=== PATIENT | female | born 1950 | race Caucasian/White ===

== ENCOUNTER 2016-09-18 22:07 | Inpatient (IN) | payer MEDICARE, MEDICAID ==
[~2016-09-18] VITALS: Ht 162.6 cm; Wt 88.5 kg
--- NOTE | 2016-09-18 22:15 | NUR ---
PT BIB PRIVATE AMBULANCE FROM [facility] FOR MED CLEARANCE AND ADMISSION TO [facility].PT ON 5150 FOR DANGER TO SELF.PT AWAKE,ALERT AND COOPERATIVE.ANSWERING QUESTIONS WITHOUT DIFFICULTY. PT IS ALERT, ORIENTED X 4, NO RESP DISTRESS NOTED OR REPORTED UPON ASSESSMENT... MD AT BEDSIDE...
[2016-09-18] MEDS ORDERED: LORAZEPAM 0.5 MG TABLET PO ONE (22:30)
[2016-09-18] MEDS ORDERED: TRIH2TAB3 PO (22:33)
[2016-09-18] MEDS ORDERED: CAPT25TA3 PO (22:33)
[2016-09-18] MEDS ORDERED: QUET50TA PO (22:33)
[2016-09-18] MEDS ORDERED: DONE5TAB34 PO (22:33)
[2016-09-18] MEDS ORDERED: ONDA4TAB8 PO (22:33)
[2016-09-18] MEDS ORDERED: DEXT1TAB13 PO (22:33)
[2016-09-18] MEDS ORDERED: SENN8.6T6 PO (22:33)
[2016-09-18] MEDS ORDERED: HYDR-552 PO (22:33)
[2016-09-18] MEDS ORDERED: INSU100I14 SQ (22:33)
[2016-09-18] MEDS ORDERED: VALS1TAB2 PO (22:33)
[2016-09-18] MEDS ORDERED: LORA0.5T PO (22:33)
[2016-09-18] MEDS ORDERED: ACET650T10 PO (22:33)
[2016-09-18] MEDS ORDERED: DEXT50DI8 IV (22:33)
[2016-09-18] MEDS ORDERED: SIMV10TA6 PO (22:33)
[2016-09-18] MEDS ORDERED: TRAZ-144 PO (22:33)
[2016-09-18] MEDS ORDERED: GLUC1VIA4 IJ (22:33)
[2016-09-18] MEDS ORDERED: DOCU-170 PO (22:33)
[2016-09-18] MEDS ORDERED: CLOM50CA2 PO (22:33)
[2016-09-18] MEDS ORDERED: [UNRECOGNIZED DRUG - CODE] IV (22:33)
[2016-09-18] MEDS ORDERED: HYDR-4076 PO (22:33)
[2016-09-18 22:45] LABS: BASOPHILS # (AUTO) 0.1 K/uL (0.0-0.2); BASOPHILS % (AUTO) 0.8 % (0.0-2.0); EOSINOPHILS # (AUTO) 0.1 K/uL (0.0-0.7); HEMATOCRIT 42.5 % (37.0-47.0); HEMOGLOBIN 13.9 g/dL (12.0-16.0); LYMPHOCYTES # (AUTO) 2.4 K/uL (0.8-4.8); LYMPHOCYTES % (AUTO) 26.7 % (20.5-51.5); MEAN CORPUSCULAR HEMOGLOBIN 27.4 uug (27.0-31.0); MEAN CORPUSCULAR HGB CONC 33 g/dL (32.0-37.0); MEAN CORPUSCULAR VOLUME 83.9 fL (81.0-99.0); MONOCYTES # (AUTO) 0.7 K/uL (0.1-1.30); MONOCYTES % (AUTO) 7.7 % (0.0-11.0); NEUTROPHILS # (AUTO) 5.7 K/uL (1.8-8.9); NEUTROPHILS % (AUTO) 63.8 % (38.5-71.5); PLATELET COUNT (AUTO) 238 K/uL (150-450); RED BLOOD CELL COUNT(AUTO) 5.07 MIL/uL (4.20-5.40)
[2016-09-18] MEDS ORDERED: LORAZEPAM 0.5 MG TABLET ONE (22:50)
[2016-09-18 22:52] LABS: CALCIUM 9.5 mg/dL (8.5-10.1); CARBON DIOXIDE 28 mmol/L (21-32); CHLORIDE 98 mmol/L (98-107); CREATININE 1.1 mg/dL (0.6-1.3); GFR 50 mL/min (>60); GLUCOSE 105 mg/dL (74-106); POTASSIUM 3.5 mmol/L (3.5-5.1); SODIUM SERUM 138 mmol/L (136-145); UREA NITROGEN, BLOOD 15 mg/dL (7-18)
[2016-09-18 22:54] LABS: ETHANOL < 3 MG/DL (0-0)
[2016-09-18 22:57] LABS: ALANINE AMINOTRANSFERASE 26 U/L (14-59); ALBUMIN 4.1 g/dL (3.4-5.0); ALKALINE PHOSPHATASE 87 U/L (50-136); ASPARTATE AMINOTRANSFERASE 27 U/L (15-37); BILIRUBIN,DIRECT 0.1 mg/dL (0.0-0.2); BILIRUBIN,TOTAL 0.5 mg/dL (0.2-1.0); TOTAL PROTEIN, SERUM 7.8 g/dL (6.4-8.2)
[2016-09-18 22:58] LABS: ACETAMINOPHEN < 2.0 ug/mL (10-30)
[2016-09-18 23:16] LABS: *BILIRUBIN,URIN NEGATIVE (NEGATIVE); *BLOOD, URINE Trace-lysed (NEGATIVE); *CLARITY,URINE HAZY (CLEAR); *COLOR,URINE YELLOW (YELLOW); *KETONES,URINE NEGATIVE (NEGATIVE); *PROTEIN,URINE NEGATIVE (NEGATIVE); *UROBILINOGEN,URINE 0.2 E.U./dl (NORMAL); LEUKOCYTE ESTERASE ,URINE 1+ (NEGATIVE); NITRITE, URINE NEGATIVE (NEGATIVE); UGLUCOSE NEGATIVE (NEGATIVE)
[2016-09-18 23:41] LABS: *AMPHETAMINE, URINE NEGATIVE (NEGATIVE); *BARBITURATE, URINE NEGATIVE (NEGATIVE); *CANNABINOID, URINE NEGATIVE (NEGATIVE); *COCCAINE, URINE NEGATIVE (NEGATIVE); *OPIATE, URINE NEGATIVE (NEGATIVE); *PHENCYCLIDINE SCREEN,URINE NEGATIVE (NEGATIVE)
[2016-09-18] MEDS ORDERED: CIPROFLOXACIN HCL 250 MG TABLET PO ONE (23:45)
[2016-09-18 23:48] LABS: BACTERIA,URINE FEW /HPF (NONE SEEN); SQUAMOUS EPITHELIAL CELL,UR MODERATE /HPF (NONE SEEN)
--- NOTE | 2016-09-18 23:49 | NUR ---
Pt. admitted to [facility]hu , under care of Dr. RUTHERFORD, Belongs List completed, Pt alert, oriented x 4, no resp distress noted or reported upon transfer assessment... pt transferred via gurney...
[2016-09-19] MEDS ORDERED: MAGNESIUM HYDROXIDE 30 ML LIQUID UDC PO PRN (00:15)
[2016-09-19] MEDS ORDERED: MAG HYDROX/AL HYDROX/SIMETH 30 ML LIQUID UDC PO PRN (00:15)
[2016-09-19] MEDS ORDERED: LORAZEPAM 1 MG TABLET PO PRN (00:15)
--- NOTE | 2016-09-19 00:30 | NUR ---
GPS ADMISSION NOTE: A 66 YEAR OLD FEMALE WAS ADMITTED @ 00:05, ON 5150 FOR DANGER TO SELF, FROM ER VIA [facility] ACCOMPANIED BY ASSISTANT ENGINEER. ACCORDING TO REPORT PATIENT HAS NOT SLEPT FOR 5 DAYS AND HAVING COMMAND AUDITORY HALLUCINATION OF SELF HARM. PATIENT HAD CHRONIC SCHIZO-AFFECTIVE DISORDER AND HAD LAST HOSPITALIZATION ON 2014 AND 2008, BUT SYMPTOMS WERE "NEVER BAD THIS". "I CAN'T UNDERSTAND OR FOCUS". ON ADMISSION PATIENT WAS ALERT/ORIENTED X3, DEPRESSED & ANXIOUS. C/O UNABLE TO SLEEP X 5 DAYS AND HAD AUDITORY HALLUCINATION THAT TELLING HER TO KILL HERSELF. DENIED ANY AUDITORY HALLUCINATION @ THIS TIME, ALSO DENIED ANY SI/ SUICIDAL PLAN. PATIENT ALSO STATED THAT SHE DID TRY TO HANG HERSELF ABOUT 15 YEARS AGO BUT SHE PROMISED THAT SHE WOULD NEVER DO IT AGAIN. DENIED ANY PAIN / DISCOMFORT. VSS. CONTINUE TO MONITOR.
[2016-09-19] MEDS: ACETAMINOPHEN 325 MG TABLET PO PRN (00:45)
[2016-09-19] MEDS: ZOLPIDEM 5 MG TABLET PO PRN (00:46)
[2016-09-19] MEDS ORDERED: ACETAMINOPHEN 325 MG TABLET ONE (00:49)
[2016-09-19] MEDS ORDERED: ZOLPIDEM 5 MG TABLET ONE (00:49)
[2016-09-19 03:03] VITALS: BP 134/82
--- NOTE | 2016-09-19 06:45 | NUR ---
AWAKE ALL NIGHT, DESPITE GIVEN AMBIEN 5 MG PO @ 00:46. PACING IN THE HALLWAY @ TIMES, ATIVAN WAS OFFERED FOR ANXIETY BUT DECLINED. NO AGITATION / AGGRESSIVE BEHAVIOR. RESTING IN BED @ THIS TIME. DENIED ANY HALLUCINATION. NO DISTRESS NOTED.
[2016-09-19 07:30] VITALS: BP 154/78
[2016-09-19] MEDS ORDERED: Medication Not On Formulary EA (Valsartan/Hydrochlorothiazide (Diovan Hct 80-12.5 Mg Tab PO SCH (09:45)
[2016-09-19] MEDS ORDERED: hydrALAZINE HCL 25 MG TABLET PO PRN (09:45)
[2016-09-19] MEDS: NITROFURANTOIN/NITROFURAN MAC 100 MG CAPSULE PO SCH ×2 (10:38→20:16)
[2016-09-19] MEDS: TRIHEXYPHENIDYL HCL 2 MG TABLET PO SCH ×4 (10:38→20:16)
[2016-09-19] MEDS: VALSARTAN 80 MG TABLET PO SCH (10:38)
[2016-09-19] MEDS: HYDROCHLOROTHIAZIDE 12.5 MG CAPSULE PO SCH (10:38)
[2016-09-19] MEDS ORDERED: PNEUMOCOCCAL 23-VAL P-SAC VAC 0.5 ML VIAL IM ONE (11:15)
[2016-09-19] MEDS: CLONAZEPAM 0.5 MG TABLET PO SCH ×2 (14:32→17:57)
[2016-09-19 15:15] VITALS: BP 128/81
[2016-09-19] MEDS ORDERED: GLIP5TAB13 PO (16:12)
[2016-09-19] MEDS ORDERED: ASPI-605 PO (16:12)
[2016-09-19] MEDS ORDERED: PROP20TA7 PO (16:12)
[2016-09-19] MEDS: SENNOSIDES 1 TABLET PO SCH (17:57)
[2016-09-19] MEDS: DOCUSATE SODIUM 100 MG CAPSULE PO SCH (17:57)
[2016-09-19] MEDS: SIMVASTATIN 10 MG TABLET PO SCH (20:16)
[2016-09-19] MEDS: QUETIAPINE FUMARATE 100 MG TABLET PO SCH (20:16)
[2016-09-19] MEDS: DIVALPROEX SPRINKLE 125 MG CAP.SPRINK PO SCH (20:16)
[2016-09-19 20:36] VITALS: BP 148/98
--- NOTE | 2016-09-19 23:35 | NUR ---
GPS: Noted pt.to be awake still at this time. Appears to be responding to internal stimuli but denies it when asked by staff.Refuses Ambien 5mg for insomnia at this time when offered by staff. Will continue to monitor.
[2016-09-20 07:30] VITALS: BP 153/95
[2016-09-20 08:13] LABS: THYROID STIMULATING HORMONE 1.21 mIU/mL (0.358-3.740)
[2016-09-20 08:15] LABS: BASOPHILS % (AUTO) 0.5 % (0.0-2.0); EOSINOPHILS # (AUTO) 0.1 K/uL (0.0-0.7); EOSINOPHILS % (AUTO) 0.9 % (0.0-7.0); HEMATOCRIT 40.3 % (37.0-47.0); HEMOGLOBIN 13.4 g/dL (12.0-16.0); LYMPHOCYTES # (AUTO) 2.6 K/uL (0.8-4.8); LYMPHOCYTES % (AUTO) 31.8 % (20.5-51.5); MEAN CORPUSCULAR HEMOGLOBIN 27.9 uug (27.0-31.0); MEAN CORPUSCULAR HGB CONC 33 g/dL (32.0-37.0); MEAN CORPUSCULAR VOLUME 84.2 fL (81.0-99.0); MONOCYTES # (AUTO) 0.6 K/uL (0.1-1.30); MONOCYTES % (AUTO) 7.3 % (0.0-11.0); NEUTROPHILS # (AUTO) 4.8 K/uL (1.8-8.9); NEUTROPHILS % (AUTO) 59.5 % (38.5-71.5); PLATELET COUNT (AUTO) 234 K/uL (150-450); RED BLOOD CELL COUNT(AUTO) 4.79 MIL/uL (4.20-5.40); RED CELL DISTRIBUTION WIDTH 13.2 % (11.5-14.5); WHITE BLOOD COUNT (AUTO) 8.1 K/uL (4.0-11.2)
[2016-09-20] MEDS: DIVALPROEX SPRINKLE 125 MG CAP.SPRINK PO SCH ×2 (08:25→20:01)
[2016-09-20] MEDS: NITROFURANTOIN/NITROFURAN MAC 100 MG CAPSULE PO SCH ×2 (08:25→20:00)
[2016-09-20] MEDS: VALSARTAN 80 MG TABLET PO SCH (08:25)
[2016-09-20] MEDS: DOCUSATE SODIUM 100 MG CAPSULE PO SCH ×2 (08:25→16:43)
[2016-09-20] MEDS: SENNOSIDES 1 TABLET PO SCH ×2 (08:25→16:43)
[2016-09-20] MEDS: CLONAZEPAM 0.5 MG TABLET PO SCH ×3 (08:26→16:43)
[2016-09-20] MEDS: TRIHEXYPHENIDYL HCL 2 MG TABLET PO SCH ×4 (08:26→20:01)
[2016-09-20] MEDS: HYDROCHLOROTHIAZIDE 12.5 MG CAPSULE PO SCH (08:26)
[2016-09-20] MEDS: FLUOXETINE HCL 20 MG CAPSULE PO SCH (08:26)
[2016-09-20 09:02] LABS: ALBUMIN 3.9 g/dL (3.4-5.0); BILIRUBIN,TOTAL 0.6 mg/dL (0.2-1.0); CALCIUM 9.3 mg/dL (8.5-10.1); CREATININE 1.1 mg/dL (0.6-1.3); MAGNESIUM 1.9 mg/dL (1.8-2.4); PHOSPHOROUS 3.7 mg/dL (2.5-4.9); POTASSIUM 3.7 mmol/L (3.5-5.1); TOTAL PROTEIN, SERUM 7.2 g/dL (6.4-8.2)
[2016-09-20] MEDS: HYDROCODONE/APAP 5-325MG TABLET PO PRN ×2 (10:18→20:48)
[2016-09-20 15:46] VITALS: BP 148/90
[2016-09-20 19:58] VITALS: BP 147/93
[2016-09-20] MEDS: QUETIAPINE FUMARATE 100 MG TABLET PO SCH (20:01)
[2016-09-20] MEDS: SIMVASTATIN 10 MG TABLET PO SCH (20:01)
[2016-09-21 07:58] VITALS: BP 149/84
[2016-09-21] MEDS: DIVALPROEX SPRINKLE 125 MG CAP.SPRINK PO SCH ×2 (08:39→20:16)
[2016-09-21] MEDS: CLONAZEPAM 0.5 MG TABLET PO SCH ×3 (08:39→17:09)
[2016-09-21] MEDS: SENNOSIDES 1 TABLET PO SCH ×2 (08:39→17:09)
[2016-09-21] MEDS: HYDROCHLOROTHIAZIDE 12.5 MG CAPSULE PO SCH (08:39)
[2016-09-21] MEDS: NITROFURANTOIN/NITROFURAN MAC 100 MG CAPSULE PO SCH ×2 (08:39→20:16)
[2016-09-21] MEDS: DOCUSATE SODIUM 100 MG CAPSULE PO SCH ×2 (08:39→17:09)
[2016-09-21] MEDS: TRIHEXYPHENIDYL HCL 2 MG TABLET PO SCH ×4 (08:39→20:16)
[2016-09-21] MEDS: VALSARTAN 80 MG TABLET PO SCH (08:40)
[2016-09-21] MEDS: FLUOXETINE HCL 20 MG CAPSULE PO SCH (08:40)
[2016-09-21] MEDS: ACETAMINOPHEN 325 MG TABLET PO PRN (09:50)
--- NOTE | 2016-09-21 13:15 | NUR ---
Initial discharge instructions:The patient resides alone in her apartment [[address]; [place] [address]].Per pt, she would like to return home upon discharge. SW attempted to call and speak with brother [Reginaldo, ] regarding potential discharge plan. However,there was no answer at this time.SW will speak to MD, patient,and family regarding most appropriate discharge plan.SW will form a safe and proper discharge plan.
[2016-09-21 15:23] VITALS: BP 134/85
[2016-09-21] MEDS: SIMVASTATIN 10 MG TABLET PO SCH (20:16)
[2016-09-21] MEDS: QUETIAPINE FUMARATE 100 MG TABLET PO SCH (20:16)
[2016-09-21 20:23] VITALS: BP 131/82
[2016-09-22 07:59] VITALS: BP 124/75
[2016-09-22] MEDS: DOCUSATE SODIUM 100 MG CAPSULE PO SCH ×2 (08:38→17:15)
[2016-09-22] MEDS: DIVALPROEX SPRINKLE 125 MG CAP.SPRINK PO SCH ×2 (08:38→20:06)
[2016-09-22] MEDS: SENNOSIDES 1 TABLET PO SCH ×2 (08:38→17:15)
[2016-09-22] MEDS: NITROFURANTOIN/NITROFURAN MAC 100 MG CAPSULE PO SCH (08:38)
[2016-09-22] MEDS: HYDROCHLOROTHIAZIDE 12.5 MG CAPSULE PO SCH (08:38)
[2016-09-22] MEDS: VALSARTAN 80 MG TABLET PO SCH (08:38)
[2016-09-22] MEDS: TRIHEXYPHENIDYL HCL 2 MG TABLET PO SCH ×4 (08:40→20:06)
[2016-09-22] MEDS: CLONAZEPAM 0.5 MG TABLET PO SCH ×3 (08:40→17:15)
[2016-09-22 15:39] VITALS: BP 114/68
[2016-09-22 20:00] VITALS: BP 126/77
[2016-09-22] MEDS: QUETIAPINE FUMARATE 100 MG TABLET PO SCH (20:06)
[2016-09-22] MEDS: SIMVASTATIN 10 MG TABLET PO SCH (20:06)
[2016-09-22] MEDS: ZOLPIDEM 5 MG TABLET PO PRN (22:03)
[2016-09-23 07:30] VITALS: BP 133/75
[2016-09-23] MEDS: TRIHEXYPHENIDYL HCL 2 MG TABLET PO SCH ×4 (08:30→20:04)
[2016-09-23] MEDS: CLONAZEPAM 0.5 MG TABLET PO SCH ×3 (08:30→17:16)
[2016-09-23] MEDS: VALSARTAN 80 MG TABLET PO SCH (08:31)
[2016-09-23] MEDS: DOCUSATE SODIUM 100 MG CAPSULE PO SCH ×3 (08:31→20:05)
[2016-09-23] MEDS: SENNOSIDES 1 TABLET PO SCH ×2 (08:31→17:16)
[2016-09-23] MEDS: HYDROCHLOROTHIAZIDE 12.5 MG CAPSULE PO SCH (08:31)
[2016-09-23] MEDS: DIVALPROEX SPRINKLE 125 MG CAP.SPRINK PO SCH ×2 (08:31→20:04)
--- NOTE | 2016-09-23 11:19 | NUR ---
WEEKLY MEETING PO INTAKE CONSTANTLY 100% ON CARDIAC DIET, NO DIET RECOMMENDATIONS AT THIS TIME LAST BM 09/22, BOWEL SOUNDS ACTIVE SKIN INTACT NO NUTRITION DIAGNOSIS AT THIS TIME MONITOR PO INTAKE, WT, LABS Addendum: 09/23/16 at [address] Amended: Links added.
[2016-09-23 16:00] VITALS: BP 132/66
[2016-09-23 20:00] VITALS: BP 119/66
[2016-09-23] MEDS: QUETIAPINE FUMARATE 100 MG TABLET PO SCH (20:04)
[2016-09-23] MEDS: SIMVASTATIN 10 MG TABLET PO SCH (20:09)
--- NOTE | 2016-09-24 06:56 | NUR ---
GPS: REMAIN CALM AND COOPERATIVE.SLEPT 8 HRS THROUGH THE NIGHT. NO BEHAVIOR PROBLEM NOTED. AMBULATE TO BATH ROOM. NO AGITATION NOTED THIS MORNING.
[2016-09-24 07:30] VITALS: BP 116/60
[2016-09-24] MEDS: DIVALPROEX SPRINKLE 125 MG CAP.SPRINK PO SCH ×2 (08:34→20:06)
[2016-09-24] MEDS: TRIHEXYPHENIDYL HCL 2 MG TABLET PO SCH ×4 (08:34→20:06)
[2016-09-24] MEDS: VALSARTAN 80 MG TABLET PO SCH (08:34)
[2016-09-24] MEDS: CLONAZEPAM 0.5 MG TABLET PO SCH ×3 (08:34→17:28)
[2016-09-24] MEDS: SENNOSIDES 1 TABLET PO SCH ×2 (08:35→17:28)
[2016-09-24] MEDS: HYDROCHLOROTHIAZIDE 12.5 MG CAPSULE PO SCH (08:35)
[2016-09-24 16:00] VITALS: BP 118/59
[2016-09-24] MEDS: DOCUSATE SODIUM 100 MG CAPSULE PO SCH (17:28)
[2016-09-24] MEDS: SIMVASTATIN 10 MG TABLET PO SCH (20:05)
[2016-09-24] MEDS: QUETIAPINE FUMARATE 100 MG TABLET PO SCH (20:05)
[2016-09-24] MEDS: ZOLPIDEM 5 MG TABLET PO PRN (22:28)
[2016-09-25 07:30] VITALS: BP 95/59
[2016-09-25] MEDS: DIVALPROEX SPRINKLE 125 MG CAP.SPRINK PO SCH (09:02)
[2016-09-25 09:03] VITALS: BP 125/76
[2016-09-25] MEDS: HYDROCHLOROTHIAZIDE 12.5 MG CAPSULE PO SCH (09:03)
[2016-09-25] MEDS: CLONAZEPAM 0.5 MG TABLET PO SCH ×2 (09:03→12:35)
[2016-09-25] MEDS: SENNOSIDES 1 TABLET PO SCH (09:03)
[2016-09-25] MEDS: VALSARTAN 80 MG TABLET PO SCH (09:03)
[2016-09-25] MEDS: DOCUSATE SODIUM 100 MG CAPSULE PO SCH (09:03)
[2016-09-25] MEDS: TRIHEXYPHENIDYL HCL 2 MG TABLET PO SCH ×2 (09:03→12:34)
--- NOTE | 2016-09-25 10:09 | NUR ---
DC Note: The Patient will be discharged today back home [[address], [place], [address]; [phone]] via private transportation at 1:00 pm. Patient's brother will be picking her up. Spoke with patient's brother, Reginaldo [phone] who is aware and agreeable with discharge plans. Patient is aware and agreeable with discharge plans. Patient will follow up with Dr. Torin Lanza (Psychiatrist) [[address], [place] [address]; [address].Valery Dowling (Hat Forming Machine Operator) [[address], [place] [address]; ].
--- NOTE | 2016-09-25 13:45 | NUR ---
1325 Discharged instructions given to the patient and brother regarding medications to continue at home , prescription given instructed to fill it to patient pharmacy- both patient and the brother verbalized understanding. All belongings and medications returned and signed by patient. Accompanied patient to the parkin area ambulatory, alert and ox3, denies SI/HI, no delusions/ no hallucinations. Discharge home with the brother via private car.
== END 2016-09-25 13:40 | disposition home or self-care (01) | DRG 885 ==
LOC: ER 22:07 → GPS 23:51
PROVIDERS: ADMIT Psychiatry & Neurology Psychiatry; ATTEND Internal Medicine
DX: F25.0 Schizoaffective disorder, bipolar type (principal); N30.01 Acute cystitis with hematuria; E87.1 Hypo-osmolality and hyponatremia; R45.851 Suicidal ideations; I10 Essential (primary) hypertension; G47.00 Insomnia, unspecified; Z90.722 Acquired absence of ovaries, bilateral; E11.9 Type 2 diabetes mellitus without complications; Z90.49 Acquired absence of other specified parts of digestive tract
CPT/HCPCS: 36415; 80164; 80307; 83735; 84100; 84443; 85025; 87086; 90732; A4663; G0480-TC; G6040-TC